=== PATIENT | male | born 1990 | race Caucasian/White ===

== ENCOUNTER 2020-12-19 18:58 | Emergency (ER) | payer OTHER ==
[~2020-12-19] VITALS: Ht 167.6 cm; Wt 77.1 kg
--- NOTE | 2020-12-19 19:08 | NUR ---
Patient BIB [facility] from home for c/o anxiety after smoking marijuana. Patient gets loud and easily anxious. Cooperative at this time. Continue to monitor.
--- NOTE | 2020-12-19 19:09 | NUR ---
Dr. Stauffer at bedside for MSE.
[2020-12-19] MEDS ORDERED: OLANZAPINE 5 MG TABLET PO STA (19:10)
[2020-12-19] MEDS ORDERED: LORAZEPAM 1 MG TABLET PO ONE (19:15)
[2020-12-19] MEDS ORDERED: diphenhydrAMINE 50 MG CAPSULE PO ONE (19:15)
[2020-12-19] MEDS ORDERED: diphenhydrAMINE 25 MG CAP PO ONE ×2 (19:18→19:21)
[2020-12-19] MEDS ORDERED: LORAZEPAM 1 MG TABLET ONE (19:18)
[2020-12-19] MEDS ORDERED: OLANZAPINE 5 MG TABLET ONE (19:19)
[2020-12-19 19:55] LABS: BASOPHILS % (AUTO) 0.6 % (0.0-2.0); EOSINOPHILS # (AUTO) 0.1 K/uL (0.0-0.7); EOSINOPHILS % (AUTO) 1.4 % (0.0-7.0); HEMATOCRIT 43.8 % (36.7-47.1); LYMPHOCYTES # (AUTO) 2.1 K/uL (20.0-40.0); LYMPHOCYTES % (AUTO) 32.2 % (20.5-51.5); MEAN CORPUSCULAR HEMOGLOBIN 30.5 uug (23.8-33.4); MEAN CORPUSCULAR HGB CONC 34 g/dL (32.5-36.3); MEAN CORPUSCULAR VOLUME 89.1 fL (73.0-96.2); MONOCYTES # (AUTO) 0.6 K/uL (2.0-10.0); MONOCYTES % (AUTO) 9.4 % (0.0-11.0); NEUTROPHILS # (AUTO) 3.8 K/uL (1.8-8.9); NEUTROPHILS % (AUTO) 56.4 % (38.5-71.5); PLATELET COUNT (AUTO) 251 K/uL (152-348); RED BLOOD CELL COUNT(AUTO) 4.91 MIL/uL (4.06-5.63); WHITE BLOOD COUNT (AUTO) 6.7 K/uL (3.6-10.2)
[2020-12-19 19:59] LABS: CARBON DIOXIDE 27 mmol/L (21-32); CHLORIDE 105 mmol/L (98-107); GLUCOSE 88 mg/dL (74-106); UREA NITROGEN, BLOOD 11 mg/dL (7-18)
[2020-12-19 20:02] LABS: MAGNESIUM 1.7 mg/dL (1.8-2.4); PHOSPHOROUS 2.3 mg/dL (2.5-4.9)
[2020-12-19 20:03] LABS: ETHANOL < 3 MG/DL (0-0)
[2020-12-19 20:04] LABS: ALANINE AMINOTRANSFERASE 23 U/L (16-63); ALKALINE PHOSPHATASE 53 U/L (50-136); ASPARTATE AMINOTRANSFERASE 20 U/L (15-37); BILIRUBIN,DIRECT 0.1 mg/dL (0.0-0.2); BILIRUBIN,TOTAL 0.4 mg/dL (0.2-1.0); TOTAL PROTEIN, SERUM 7.1 g/dL (6.4-8.2)
[2020-12-19 20:05] LABS: ACETAMINOPHEN < 2.0 ug/mL (10-30)
[2020-12-19] MEDS ORDERED: LORAZEPAM 2 MG/1 ML VIAL ONE (20:10)
[2020-12-19] MEDS ORDERED: LORAZEPAM 2 MG/1 ML VIAL IM ONE (20:15)
[2020-12-19 20:20] LABS: *BILIRUBIN,URIN NEGATIVE (NEGATIVE); *COLOR,URINE YELLOW (YELLOW); *KETONES,URINE NEGATIVE (NEGATIVE); *UROBILINOGEN,URINE 0.2 E.U./dl (NORMAL); LEUKOCYTE ESTERASE ,URINE NEGATIVE (NEGATIVE); NITRITE, URINE NEGATIVE (NEGATIVE); UGLUCOSE NEGATIVE (NEGATIVE)
[2020-12-19 20:22] LABS: *BLOOD, URINE TRACE (NEGATIVE)
--- NOTE | 2020-12-19 20:23 | NUR ---
Patient medically cleared by Dr Stauffer. Telephone call to Rose Marie/materials scientist to assess patient.
[2020-12-19 20:26] LABS: *CLARITY,URINE SLIGHTLY HAZY (CLEAR); BACTERIA,URINE NONE SEEN /HPF (NONE SEEN); MUCUS,URINE FEW /LPF (0-FEW); SQUAMOUS EPITHELIAL CELL,UR NONE SEEN /HPF (NONE SEEN); WBC,URINE 0-3 /HPF (0-3)
[2020-12-19 20:30] LABS: *AMPHETAMINE, URINE NEGATIVE (NEGATIVE); *CANNABINOID, URINE POSITIVE (NEGATIVE); *COCCAINE, URINE NEGATIVE (NEGATIVE); *OPIATE, URINE NEGATIVE (NEGATIVE); *PHENCYCLIDINE SCREEN,URINE NEGATIVE (NEGATIVE)
[2020-12-19] MEDS ORDERED: MAGNESIUM OXIDE 400 MG TABLET PO ONE (20:30)
[2020-12-19] MEDS ORDERED: MAGNESIUM OXIDE 400 MG TABLET ONE (20:37)
--- NOTE | 2020-12-20 03:15 | NUR ---
Patient awake, AOx4. In no acute distress. Telephone call to crisis team/Art and informed that patient needs assesement. Art gave this nurse instruction to call Cherise Mera . Telephone call to [facility], spoke to Christo and informed of patient condition. Christo instructed this nurse to fax all pt info to for review and done. Awating for CM or Christo fr [facility] for call back if patient will be accepted.
--- NOTE | 2020-12-20 06:44 | NUR ---
Telephone call fr. [facility], spoke to Nicole and stated that pt is being accepted at [facility] (address: [address] [place] [id number]. , ext [phone]). Accepting DrYolanda is Dr. Syed. Nicole stated to call for report at 8am and they will give room # then. Will endorse to Day shift nurse.
--- NOTE | 2020-12-20 07:06 | NUR ---
Report given to day shift nurse
--- NOTE | 2020-12-20 07:54 | NUR ---
PT RESTING, AROUSABLE AT THE TIME OF GETTING VS, ON RA 100%,
--- NOTE | 2020-12-20 08:15 | NUR ---
CALLED [facility] , NO RESPONSE, WILL CALL BACK AGAIN.
--- NOTE | 2020-12-20 08:47 | NUR ---
called second time to give report, it says that, " this extension is not set up yet." talked to scientific laboratory supervisor, was transfered to the same extention.
--- NOTE | 2020-12-20 09:30 | NUR ---
called [facility] and gave report to dillan.
--- NOTE | 2020-12-20 09:34 | NUR ---
called [facility], eta [facility]
--- NOTE | 2020-12-20 10:19 | NUR ---
pt transfered to [facility] via [facility] in stable condition, pt in good spirit, happy to be transfered .
== END 2020-12-20 10:20 ==
LOC: ER 19:01
DX: F15.259 Other stimulant dependence with stimulant-induced psychotic disorder, unspecified (principal); R45.851 Suicidal ideations; F32.9 Major depressive disorder, single episode, unspecified; F20.9 Schizophrenia, unspecified; Z20.822 Contact with and (suspected) exposure to COVID-19; E83.42 Hypomagnesemia; E83.39 Other disorders of phosphorus metabolism; F12.20 Cannabis dependence, uncomplicated; Z72.0 Tobacco use
CPT/HCPCS: 36415; 80048; 80076; 80299; 80307; 80320; 81001; 83735; 84100; 85025; 87426; 96372; 99285; J2060; Q0163 ×2; A4663; G0480